=== PATIENT | female | born 1990 | race African-American/Black ===

== ENCOUNTER 2023-09-28 11:06 | Emergency (ER) | payer BC ==
[2023-09-28 11:47] VITALS: BMI 27.2
[2023-09-28] MEDS ORDERED: ACETAMINOPHEN 325 MG TABLET (FP) ONE ×2 (12:45→13:18)
[2023-09-28] MEDS: ACETAMINOPHEN 500 MG TABLET (FP) PO ONE (12:50)
[2023-09-28 13:03] LABS: HCG,QUALITATIVE URINE Positive; PH,URINE 5.5 (5.0-8.0); URINE APPEARANCE CLEAR; URINE BILIRUBIN NEGATIVE (NEGATIVE); URINE COLOR DK YELLOW; URINE GLUCOSE (UA) NEGATIVE (NEGATIVE); URINE KETONE TRACE (NEGATIVE); URINE LEUK ESTERASE NEGATIVE (NEGATIVE); URINE NITRITE NEGATIVE (NEGATIVE); URINE PROTEIN TRACE (NEGATIVE)
[2023-09-28 13:46] VITALS: BP 115/64; PULSE 62; RESP 20; TEMP 97.8
== END 2023-09-28 13:46 | disposition home or self-care (01) ==
LOC: JER 11:06
DX: O21.9 Vomiting of pregnancy, unspecified (principal); O26.899 Other specified pregnancy related conditions, unspecified trimester; R51.9 Headache, unspecified; R10.30 Lower abdominal pain, unspecified; Z3A.00 Weeks of gestation of pregnancy not specified
CPT/HCPCS: 0241U-QW; 81003; 84703; 87086; 99283-25

== ENCOUNTER 2024-05-04 06:00 | Inpatient (IN) | payer BC, OTHER ==
[2024-05-04 06:28] VITALS: BMI 31.1
[2024-05-04] MEDS: ELECTROLYTE-148 SOLN 500 ML IV ONE (06:30)
[2024-05-04] MEDS: ELECTROLYTE-148 SOLN 1,000 ML IV SCH (07:00)
[2024-05-04] MEDS: CITRIC ACID/SODIUM CITRATE 30 ML UNIT-DOSE CUP PO ONE (07:35)
[2024-05-04] MEDS ORDERED: morphine SULFATE/PF 1 MG/2 ML (2cc Syringe - QUVA) ONE (07:57)
[2024-05-04] MEDS ORDERED: FENTANYL CITRATE/PF 50 MCG/ML VIAL ONE (07:57)
[2024-05-04 08:11] LABS: HIV INTERPRETATION NEGATIVE (NEGATIVE)
[2024-05-04] MEDS ORDERED: PHENYLEPHRINE HCL 10 MG/1 ML SINGLE DOSE VIAL ONE (08:20)
[2024-05-04] MEDS ORDERED: ceFAZolin SODIUM 1 GM VIAL ONE (08:27)
[2024-05-04] MEDS ORDERED: ONDANSETRON 4 MG/2 ML VIAL ONE (08:27)
[2024-05-04] MEDS ORDERED: OXYTOCIN 10 UNITS/ML VIAL ONE ×2 (08:27→09:13)
[2024-05-04] MEDS: OXYTOCIN 20 UNITS in 0.9% NS 20 UNIT/1,000 ML INFUS.BAG IV SCH (09:30)
[2024-05-04 09:57] LABS: CORD HCO3 26.2 mmHg (20-29); CORD PCO2 57.1 mmHg (30-78); CORD pH 7.279 (7.14-7.44)
[2024-05-04 09:58] LABS: CORD BASE EXCESS -1.7 mmol/L (0-2); CORD HCO3 23.9 mmHg (20-29); CORD PCO2 43.4 mmHg (30-78); CORD pH 7.359 (7.14-7.44)
[2024-05-04] MEDS ORDERED: METHYLERGONOVINE MALEATE 0.2 MG/1 ML AMP IM PRN (10:46)
[2024-05-04] MEDS ORDERED: OXYTOCIN 20 UNITS in 0.9% NS 20 UNIT/1,000 ML INFUS.BAG IV ONE (10:54)
[2024-05-04] MEDS ORDERED: ACETAMINOPHEN INJECTION 100 ML ONE (10:55)
[2024-05-04] MEDS: ACETAMINOPHEN 1000 MG/100 ML BAG IVPB PRN (11:03)
[2024-05-04] MEDS: CEFAZOLIN SODIUM 2 GM in DEXTROSE 5%-WATER 100 ML IVPB SCH (12:00)
[2024-05-04] MEDS: ONDANSETRON 4 MG/2 ML VIAL IVPUSH PRN (12:58)
[2024-05-04] MEDS ORDERED: IBUPROFEN 800 MG/8 ML IJ IVPB PRN (12:59)
[2024-05-04] MEDS: IBUPROFEN 800 MG/8 ML IJ IVPB PRN (13:27)
[2024-05-04] MEDS ORDERED: oxyCODONE HCL 5 MG TABLET PO PRN (22:46)
[2024-05-05] MEDS: CEFAZOLIN SODIUM 2 GM in DEXTROSE 5%-WATER 100 ML IVPB SCH (03:03)
[2024-05-05] MEDS: IBUPROFEN 600 MG TABLET (FP) PO PRN (10:19)
[2024-05-05 10:28] LABS: BASO % 0.2 % (0-2.0); EOS % 0.8 % (0-4.5); HEMATOCRIT 35.5 % (32.4-45.2); HEMOGLOBIN 11.5 GM/dL (10.7-15.3); LYMPH % 13.7 % (8-40); MCHC 32.4 g/dl (32.0-36.0); MEAN CELL VOLUME 95.6 fl (80-96); MEAN PLT VOLUME 10.3 fl (7.5-11.1); MONO % 7.8 % (3.8-10.2); NEUT % 77.5 % (42.8-82.8); RBC 3.71 M/mm3 (3.60-5.2); RDW 15.2 % (11.6-15.6); WHITE BLOOD COUNT 12.9 K/mm3 (4.0-10.0)
[2024-05-05 10:29] LABS: PLATELET COUNT 152 10^3/uL (134-434)
[2024-05-05] MEDS ORDERED: BISACODYL 10 MG SUPP.RECT RC PRN (10:46)
[2024-05-05] MEDS: SIMETHICONE 80 MG TAB.CHEW (FP) PO PRN (11:02)
[2024-05-05] MEDS: ENOXAPARIN NA (PORCINE) 40 MG/0.4 ML DISP.SYRIN SQ SCH (11:24)
[2024-05-05] MEDS: ACETAMINOPHEN 325 MG TABLET (FP) PO PRN (14:03)
[2024-05-05] MEDS: oxyCODONE HCL 5 MG TABLET PO PRN (20:54)
[2024-05-06 22:20] VITALS: RESP 18
[2024-05-07 08:19] LABS: BASO % 0.4 % (0-2.0); EOS % 2.4 % (0-4.5); HEMATOCRIT 29.9 % (32.4-45.2); HEMOGLOBIN 9.8 GM/dL (10.7-15.3); LYMPH % 25.5 % (8-40); MCH 31.2 pg (25.7-33.7); MCHC 32.8 g/dl (32.0-36.0); MEAN CELL VOLUME 95.2 fl (80-96); MEAN PLT VOLUME 9.4 fl (7.5-11.1); MONO % 9.8 % (3.8-10.2); NEUT % 61.9 % (42.8-82.8); PLATELET COUNT 200 10^3/uL (134-434); RBC 3.14 M/mm3 (3.60-5.2); WHITE BLOOD COUNT 7.7 K/mm3 (4.0-10.0)
[2024-05-07] MEDS: DOCUSATE SODIUM 100 MG CAPSULE (FP) PO ONE (08:55)
[2024-05-07 09:17] VITALS: BP 129/74; PULSE 80; TEMP 97.9
== END 2024-05-07 13:55 | disposition home or self-care (01) | DRG 787 ==
LOC: JLDR 06:00 → J3W 11:55
PROVIDERS: ADMIT Obstetrics & Gynecology; ATTEND Obstetrics & Gynecology
PROC: 10D00Z1 Extraction of Products of Conception, Low, Open Approach (ICD-10-PCS; principal; 2024-05-04)
PROC: 0DNW0ZZ Release Peritoneum, Open Approach (ICD-10-PCS; 2024-05-04)
PROC: 0DQW0ZZ Repair Peritoneum, Open Approach (ICD-10-PCS; 2024-05-04)
DX: O32.1XX0 Maternal care for breech presentation, not applicable or unspecified (principal); O26.643 Intrahepatic cholestasis of pregnancy, third trimester; O26.893 Other specified pregnancy related conditions, third trimester; K66.0 Peritoneal adhesions (postprocedural) (postinfection); O71.89 Other specified obstetric trauma; Z3A.37 37 weeks gestation of pregnancy; Z37.0 Single live birth
CPT/HCPCS: 36415; 36600; 82803; 85025; 86900; 87389; 88307-TC; 94010; J0131